=== PATIENT | female | born 1950 | race Caucasian/White ===

== ENCOUNTER 2018-04-16 17:43 | Observation (INO) ==
[2018-04-16] MEDS ORDERED: IPRATROPIUM/ALBUTEROL SULFATE 3 ML NEB NEB ONE (18:16)
[2018-04-16] MEDS ORDERED: Sodium Chloride 0.9% 1,000 ML PRIMARY IV ONE (18:16)
--- NOTE | 2018-04-16 18:25 | PDOC ---
Upper Respiratory HPI - General Chief Complaint: Cough / URI Stated Complaint: "blooming cold almost a week" Date Seen by Provider: 04/16/18 Time Seen by Provider: 18:05 Source: POSITIVE: Patient Exam Limitations: POSITIVE: No limitations Nurse's Notes Reviewed & Considered: Yes - History of Present Illness Initial Comments: The patient is a 67-year-old female who is brought to the emergency department with complaints of cough. She developed upper respiratory symptoms approximately a week ago. She has had increase in productive cough over the past couple of days. She was running a low-grade fever earlier today. She does have a history of COPD and continues to smoke. She does not currently use oxygen or any type of inhalers or breathing treatments at home. She does have a history of previous CVA with left-sided deficit from approximately 2 years ago. She does still take Plavix. She has not noticed any shortness of breath however she was somewhat hypoxic on arrival and placed on O2 per nasal cannula. She does report some tightness across her chest for the past couple of days. - Patient Home Medications Home Medications: Home Medications atorvastatin 40 mg tablet 40 mg PO .hs #30 tab 12/20/17 baclofen 10 mg tablet 10 mg PO Q8-10H PRN #30 tab 12/20/17 metoprolol succinate ER 25 mg tablet,extended release 24 hr 25 mg PO .Twice a day #60 tab 12/20/17 nortriptyline 10 mg capsule 20 mg PO QHS #60 cap 12/20/17 clopidogrel 75 mg tablet 75 mg PO QDAY #90 tab 03/08/18 - Patient Allergies Allergies/Adverse Reactions: Allergies 3 Allergy/AdvReac Type Severity Reaction Status Date / Time Penicillins Allergy RASH Verified 04/16/18 20:33 aspirin AdvReac nausea Verified 04/16/18 20:33 Past Medical History - heen HEENT History: Hard of Hearing Additional HEENT History: wears glasses Cardiovascular History: Hypertension, Hyperlipidemia Respiratory History: Denies History Gastrointestinal History: Denies History Genitourinary History: Denies History Endocrine History: Denies History Musculoskeletal History: Back Pain Prosthesis or Implant: No Neurological History: CVA Additional Neurological History: "mild stroke on lt side" Blood Disorders: Denies History Psychiatric History: Depression Female Reproductive History: Hysterectomy Obstetrical History: Denies History Cancer History: Denies History In Past Year Been Physically Harmed or Verbally Threatened: No History of MDRO: No Tobacco Use: Former Smoker In the Past 12 Months, Have Used or Abuse Any Substance: None Previous Surgical History: Yes Type / Date of Surgery: lt arm fx, lt knee, hysterectomy Significant Family History: Heart disease, Cancer Past Medical History Reviewed: Reviewed - No Changes ROS - Limitations ROS Limitations: No Limitations Constitution: REPORTS: Fever (Low-grade fever earlier today according 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 DENIES: Chills Cardiovascular: REPORTS: Chest Pain (She does report some tightness across her chest) Respiratory: REPORTS: Cough Productive (Most of the time the phlegm gets caught in the back of her throat and has not expectorated), Shortness Of Breath Neurological: REPORTS: Denies Neuro Symptoms, Other (Chronic left-sided weakness ) Gastrointestinal: REPORTS: Denies GI Symptoms Musculoskeletal: REPORTS: Denies MS Symptoms Genitourinary: REPORTS: Denies Symptoms Eyes: REPORTS: Denies Symptoms ENT: REPORTS: Denies Symptoms Skin: REPORTS: Rash Upper Respiratory/Fever Exam - General Appearance General Appearance: REPORTS: Alert, Cooperative, No Acute Distress - HEENT HEENT: POSITIVE: Head Inspection Nml, Eyes Inspection Nml, Ears Inspection Nml, Nose Inspection Nml, Pharynx Inspect. Nml - Neck Neck: REPORTS: Normal Inspection. DENIES: Lymphadenopathy - Respiratory Respiratory: REPORTS: No Respiratory Distress, Other (She does have diminished breath sounds bilaterally and a wheezy rhonchus sounding cough) - Abdomen Abdomen: Soft: (All Quadrants), Denies Tenderness: (All Quadrants) - Cardiovascular Cardiovascular: REPORTS: Regular Rate and Rhythm, Heart Sounds Normal Peripheral Pulses: Dorsalis-pedis (R): 2+, Dorsalis-pedis (L): 2+ - Skin Skin: REPORTS: Intact, No Rash - Extremities Extremity: Normal ROM: (All Extremities), Normal Inspection: (All Extremities) - Neurological / Psychological Neurological: POSITIVE: Oriented X3, Motor Normal, Sensation Normal Upper Resp/Fever Progress - Results Reviewed by me Xrays/CTs/US Reviewed by me: Yes Discussed with Radiologist: Yes Radiology Findings: Chest x-ray showed some mild haziness in the right lower lobe however the radiologist read it as no acute process. Lab Results Reviewed by Me: Yes CBC and BMP: 04/16/18 18:25 04/16/18 18:25 Lab Results:: Laboratory Results 3 04/16/18 04/16/18 04/16/18 18:25 18:25 18:25 WBC 8.14 RBC 4.68 Hgb 14.8 Hct 42.6 MCV 91.0 MCH 31.6 H MCHC 34.7 RDW Std Deviation 46.8 RDW Coeff of Tati 14.3 Plt Count 312 MPV 9.7 Immature Gran % (Auto) 0.1 Neut % (Auto) 67.6 Lymph % (Auto) 20.5 [place] % (Auto) 8.0 Eos % (Auto) 3.4 Baso % (Auto) 0.4 Immature Gran # (Auto) 0.01 Neut # (Auto) 5.50 Lymph # (Auto) 1.67 [place] # (Auto) 0.65 Eos # (Auto) 0.28 Baso # (Auto) 0.03 WBC Morphology Comment Normal morphology Plt Morphology Comment Normal morphology RBC Morph Comment Normal morphology D-Dimer VBG pH VBG pCO2 VBG HCO3 VBG Base Excess Sodium Potassium Chloride Carbon Dioxide Anion Gap BUN Creatinine Estimated GFR BUN/Creatinine Ratio Glucose Calculated Osmolality Calcium Magnesium 1.9 Total Bilirubin AST ALT Alkaline Phosphatase Troponin I < 0.012 C-Reactive Protein 1.3 H NT-Pro-B Natriuret Pep 380 H Total Protein Albumin Globulin Albumin/Globulin Ratio 3 04/16/18 04/16/18 04/16/18 18:25 18:25 18:36 WBC RBC Hgb Hct MCV MCH MCHC RDW Std Deviation RDW Coeff of Tati Plt Count MPV Immature Gran % (Auto) Neut % (Auto) Lymph % (Auto) [place] % (Auto) Eos % (Auto) Baso % (Auto) Immature Gran # (Auto) Neut # (Auto) Lymph # (Auto) [place] # (Auto) Eos # (Auto) Baso # (Auto) WBC Morphology Comment Plt Morphology Comment RBC Morph Comment D-Dimer 0.40 VBG pH 7.39 VBG pCO2 44 L VBG HCO3 27 H VBG Base Excess 2 Sodium 141 Potassium 3.9 Chloride 103 Carbon Dioxide 27 Anion Gap 11 BUN 11 Creatinine 0.7 Estimated GFR > 60 BUN/Creatinine Ratio 15.71 Glucose 106 Calculated Osmolality 290.0 Calcium 9.3 Magnesium Total Bilirubin 0.7 AST 18 ALT 26 Alkaline Phosphatase 121 Troponin I C-Reactive Protein NT-Pro-B Natriuret Pep Total Protein 7.3 Albumin 4.2 Globulin 3.1 Albumin/Globulin Ratio 1.30 EKG Interpreted/Reviewed By Me:: Yes EKG Interpretation:: POSITIVE: Normal Sinus Rhythm, Normal Rate, Normal Intervals, Normal ST/T - Patient's Progress MDM / ED Course: The patient's oxygen saturation on arrival was anywhere from 86-90%. She was placed on O2 per nasal cannula. Blood cultures and lactate as well as venous blood gas were drawn with initial IV start. Patient received a DuoNeb. Her chest x-ray showed some questionable haziness in the right lower lobe although this was read as normal by the radiologist. Her blood work is essentially unremarkable with a normal d-dimer, normal troponin, mildly elevated BNP, normal white blood cell count. Clinical presentation is most consistent with COPD exacerbation. She is mildly hypoxic. Decision was made to admit the patient for initial treatment. She was given Solu-Medrol 125 mg IV. - Consult Counseled: POSITIVE: Patient, Family, RE: Lab Results, RE: Radiology Results, RE : DX, RE: Need for F/U Patient Care Time - Estimated PCT Patient Care Time (In Minutes): 35 Vital Signs - Recent Vital Signs Vital Signs: Vital Signs (Last 8 hours) Temp Pulse Pulse Pulse Resp BP BP 04/16/18 23:00 04/16/18 21:00 97.1 F 81 20 175/81 04/16/18 20:32 80 04/16/18 20:21 97.9 F 77 20 136/72 04/16/18 18:38 84 20 04/16/18 18:37 73 18 04/16/18 17:50 97.2 F 86 22 BP Pulse Ox 04/16/18 23:00 92 04/16/18 21:00 93 04/16/18 20:32 04/16/18 20:21 94 04/16/18 18:38 100 04/16/18 18:37 93 04/16/18 17:50 155/72 90 - VS Reviewed Vital Signs Reviewed: Yes Discharge Clinical Impression: COPD with exacerbation Discharge Disposition: Admit to Observation Condition: Fair
--- NOTE | 2018-04-16 18:30 | EKG ---
[address] [address] Measurements Intervals [place] Rate: 74 P: 68 [place]: 169 QRS: -70 QRSD: 117 T: -15 QT: 395 QTc: 422 Interpretive Statements SINUS RHYTHM PATTERN CONSISTENT WITH PULMONARY DISEASE LEFT ANTERIOR FASCICULAR BLOCK [QRS AXIS No previous ECG available for comparison Electronically Signed On 04-17-18 08:34:14 MDT by Ismael Torrez [email or web address]
[2018-04-16 18:39] LABS: BASOPHILS # (AUTO) 0.03 10*3/UL; BASOPHILS % (AUTO) 0.4 % (0-1); EOSINOPHILS # (AUTO) 0.28 10*3/UL; EOSINOPHILS % (AUTO) 3.4 % (0-8); Hematocrit [HCT] 42.6 % (37.0-47.0); Hemoglobin [HGB] 14.8 g/dL (12.0-16.0); LYMPHOCYTES # (AUTO) 1.67 10*3/uL; MEAN CORPUSCULAR HEMOGLOBIN 31.6 PG (27-31); MEAN CORPUSCULAR HGB CONC 34.7 g/dL (33-37); MEAN PLATELET VOLUME 9.7 FL (7.4-12.2); MONOCYTES # (AUTO) 0.65 10*3/UL (0.3-0.8); NEUTROPHILS % (AUTO) 67.6 % (50-80); RED BLOOD COUNT 4.68 10^6/uL (4.20-5.40)
[2018-04-16 18:40] LABS: PLATELET MORPHOLOGY COMMENT NORMAL MORPHOLOGY (NORM); RBC MORPHOLOGY COMMENT NORMAL MORPHOLOGY (NORM); WBC MORPHOLOGY COMMENT NORMAL MORPHOLOGY (NORM)
[2018-04-16 18:47] LABS: BLOOD UREA NITROGEN 11 mg/dL (7-22); BUN/CREATININE RATIO 15.71 (6-20); SERUM ALBUMIN 4.2 g/dL (3.5-4.8)
[2018-04-16 19:01] LABS: VENOUS PH 7.39 (7.32-7.42)
[2018-04-16] MEDS ORDERED: methylPREDNISolone 125 MG/2 ML VIAL IVP ONE (19:56)
--- NOTE | 2018-04-16 20:15 | DI ---
XR CXR 1VW,04/16/2018 6:17 PM: Clinical History: Cough and hypoxia. Previous Exam: None at this facility. Findings: A single frontal radiograph of the chest is obtained, and demonstrates clear lungs. The cardiomediast inum and bony thorax are unremarkable. Mild degenerative changes are noted of the acromioclavicular joints. Impression: No acute disease.
[2018-04-16] MEDS ORDERED: LIDOCAINE W/ SODIUM BICARB 0.5 ML SYR SUBD PRN (20:26)
[2018-04-16] MEDS ORDERED: BACLOFEN 20 MG TABLET PO PRN (20:26)
[2018-04-16] MEDS ORDERED: ALBUTEROL SULFATE 2.5 MG/3 ML NEB PRN (20:26)
[2018-04-16] MEDS ORDERED: NORTRIPTYLINE HCL 10 MG CAPSULE PO SCH (21:00)
[2018-04-16] MEDS ORDERED: ATORVASTATIN 40 MG TABLET PO SCH (21:00)
[2018-04-16] MEDS: Metoprolol TARTRATE Tab 25 MG TAB PO SCH (21:24)
[2018-04-16] MEDS: CLOPIDOGREL 75 MG TABLET PO SCH (21:24)
--- NOTE | 2018-04-16 21:43 | PDOC ---
HPI - History of Present Illness History of Present Illness: This very nice 67-year-old female with past medical history consistent with COPD has been a smoker whole her life she said she quit 1 month ago. Had increase the productive cough over the last couple days and some shortness of breath and decided to be seen in the ER she does not use oxygen or any medication for her COPD she has also past medical history from previous CVA with left-sided weakness from 2 years ago and is on Plavix she does not know where Drs. was a little hypoxic in the ER was placed on 2 L of oxygen and given steroids Past Medical History Medical History: COPD, history of CVA, hypertension, hypercholesterolemia Tobacco Use: Former Smoker In the Past 12 Months, Have Used or Abuse Any of the Following Substance: None Medication / Allergies Home Medications: Home Medications 3 Medication Instructions Recorded Confirmed Type atorvastatin 40 mg tablet 40 mg PO .hs #30 tab 12/20/17 04/16/18 Rx baclofen 10 mg tablet 10 mg PO Q8-10H PRN #30 tab 12/20/17 04/16/18 Rx metoprolol succinate ER 25 mg 25 mg PO .Twice a day #60 tab 12/20/17 04/16/18 Rx tablet,extended release 24 hr nortriptyline 10 mg capsule 20 mg PO QHS #60 cap 12/20/17 04/16/18 Rx clopidogrel 75 mg tablet 75 mg PO QDAY #90 tab 03/08/18 04/16/18 Rx Allergies/Adverse Reactions: Allergies 3 Allergy/AdvReac Type Severity Reaction Status Date / Time Penicillins Allergy RASH Verified 04/16/18 20:33 aspirin AdvReac nausea Verified 04/16/18 20:33 Review of Systems - Review of Systems All Systems: Reviewed & No Additional Complaints Except as Stated - Respiratory Respiratory: REPORTS: Cough, Wheezing - Cardiovascular Cardiovascular: DENIES: Negative System Review, Chest Pain, Edema, Syncope, Palpitations, Orthopnea, Paroxysmal Nocturnal Dyspnea, Other, See HPI - Gastrointestinal Gastrointestinal / Abdominal: DENIES: Negative System Review, Nausea, Vomiting, Diarrhea, Constipation, Abdominal Pain, Bloody Stool, Poor Appetite, Heartburn, Regurgitation, Bloating, Lactose Intolerance, Melena, Bright Red Blood per Rectum, Other, See HPI - Neurological Neurologic: REPORTS: Weakness (The weakness is chronic on the left side). DENIES: Headache, Tremors, LOC, Dizziness, Confusion Exam - Vitals Vital Signs: Vital Signs Temperature 97.1 F Temperature Source Temporal Artery Scan Pulse Rate [Apical] 80 Pulse Rate [Pulse Oximeter] 81 Pulse Rate 77 Respiratory Rate 20 Blood Pressure [Left Arm] 175/81 Blood Pressure [Right Arm] 155/72 Blood Pressure 136/72 Pulse Ox 92 Oxygen Flow Rate 2 Oxygen Delivery Method Nasal Cannula Height 5 ft 10 in Weight 217 lb 2 oz - General General Appearance: No Acute Distress, Cooperative - Head Head Exam: Normal Inspection, Normocephalic, Atraumatic - Eye Eye Exam: POSITIVE: Normal Appearance, PERRL, EOMI, No Scleral Icterus - Neck Neck Exam: Normal Inspection, Full ROM, No Tenderness, No Lymphadenopathy, No Thyromegaly, JVP is not Raised - Respiratory Respiratory Exam: POSITIVE: Decreased Breath Sounds, Rales, Wheezes - Cardiovascular Cardiovascular Exam: POSITIVE: RRR, No Murmur, No Clicks, No Gallops, No Rubs, PMI Non-Displaced - GI/Abdominal GI/Abdominal Exam: POSITIVE: Normal Bowel Sounds, Non Tender, Non Distended, Soft, No Masses, No Hepatomegaly, No Splenomegaly, No Organomegaly - Extremities Extremities Exam: POSITIVE: Normal Inspection, Full ROM, Normal Capillary Refill , No Clubbing Present, No Edema Present, No Cyanosis Present, Negative Shaheed's sign, Dosalis Pedis Pulses - Stong & Regular Results - Labs CBC and BMP: 04/16/18 18:25 04/16/18 18:25 Assessment and Plan - Patient Problems (1) COPD with exacerbation Current Visit: Yes Status: Acute Comment: We will start Levaquin patient is allergic to penicillin, and dual nebs , and steroids 60 IV every 6 we'll see how she does tomorrow labs are unremarkable we will do also on oxygen challenge and making sure that she has not any oxygen to be discharged patient agrees and understands I discussed this with nursing she wants to be DO NOT RESUSCITATE Code(s): J44.1 - Chronic obstructive pulmonary disease with (acute) exacerbation (2) Hypoxia Current Visit: No Status: Acute Code(s): R09.02 - Hypoxemia (3) Hypertension Current Visit: No Status: Chronic Code(s): I10 - Essential (primary) hypertension Qualifiers:
[2018-04-17] MEDS: methylPREDNISolone 125 MG/2 ML VIAL IVP SCH ×2 (01:34→09:25)
[2018-04-17 04:56] LABS: BASOPHILS # (AUTO) 0.01 10*3/UL; BASOPHILS % (AUTO) 0.1 % (0-1); EOSINOPHILS # (AUTO) 0.01 10*3/UL; EOSINOPHILS % (AUTO) 0.1 % (0-8); Hematocrit [HCT] 40.2 % (37.0-47.0); Hemoglobin [HGB] 13.9 g/dL (12.0-16.0); MEAN CORPUSCULAR HEMOGLOBIN 31.2 PG (27-31); MEAN CORPUSCULAR HGB CONC 34.6 g/dL (33-37); MEAN CORPUSCULAR VOLUME 90.1 FL (81-99); MEAN PLATELET VOLUME 9.9 FL (7.4-12.2); MONOCYTES # (AUTO) 0.06 10*3/UL (0.3-0.8); MONOCYTES % (AUTO) 0.7 % (5-15); NEUTROPHILS # (AUTO) 7.38 10*3/UL; NEUTROPHILS % (AUTO) 82.7 % (50-80); RED BLOOD COUNT 4.46 10^6/uL (4.20-5.40)
[2018-04-17 05:17] LABS: VENOUS PH 7.43 (7.32-7.42)
[2018-04-17 05:25] LABS: PLATELET MORPHOLOGY COMMENT NORMAL MORPHOLOGY (NORM); RBC MORPHOLOGY COMMENT NORMAL MORPHOLOGY (NORM); WBC MORPHOLOGY COMMENT NORMAL MORPHOLOGY (NORM)
[2018-04-17 05:26] LABS: BLOOD UREA NITROGEN 15 mg/dL (7-22); BUN/CREATININE RATIO 21.42 (6-20)
[2018-04-17 06:39] VITALS: BP 157/78; TEMP 97.1
[2018-04-17 07:19] VITALS: RESP 18
--- NOTE | 2018-04-17 09:11 | DI ---
CT CTA Chest Non-Coronary O,04/17/2018 7:27 AM: Clinical History: Hypoxia. Previous Exam: None at this facility. Findings: Multiple helically acquired CT images are obtained through the chest following intravenous administra tion of contrast, and demonstrate normal pulmonary arteries without filling defect or truncation to s uggest pulmonary embolism. The aorta is normal. There is no infiltrate nor effusion. There is some motion artifact. The thyroid is within normal limits. There is no mediastinal lymphadenopathy. The upper abdomen is un remarkable. Diffuse degenerative changes of the spine are seen. Impression: 1. No evidence of pulmonary embolism. 2. No evidence of infiltrate nor effusion.
[2018-04-17] MEDS ORDERED: FLUTICASONE/SALMETEROL 250/50 UD INHALER INH SCH (09:15)
[2018-04-17] MEDS ORDERED: TIOTROPIUM BROMIDE 18 MCG CAPSULE INH SCH (09:15)
--- NOTE | 2018-04-17 09:19 | DCSUMMARY ---
Hospitalization Summary Hospital Course: Final Discharge Diagnosis: Current Visit Problems Problem Status Onset Code COPD with exacerbation Acute J44.1 Diagnostic Data, Laboratory Data, and Procedures of Signifigance: Laboratory Results 04/16/18 04/16/18 04/16/18 Range/Units 18:25 18:25 18:25 WBC 8.14 (4.8-10.8) 10^3/uL RBC 4.68 (4.20-5.40) 10^6/uL Hgb 14.8 (12.0-16.0) g/dL Hct 42.6 (37.0-47.0) % MCV 91.0 (81-99) FL MCH 31.6 H (27-31) PG MCHC 34.7 (33-37) g/dL RDW Std Deviation 46.8 (39-50) fL RDW Coeff of Tati 14.3 (11.5-14.5) % Plt Count 312 (140-350) 10*3/uL MPV 9.7 (7.4-12.2) FL Immature Gran % (Auto) 0.1 (0-5) % Neut % (Auto) 67.6 (50-80) % Lymph % (Auto) 20.5 (10-50) % [place] % (Auto) 8.0 (5-15) % Eos % (Auto) 3.4 (0-8) % Baso % (Auto) 0.4 (0-1) % Immature Gran # (Auto) 0.01 10*3/UL Neut # (Auto) 5.50 10*3/UL Lymph # (Auto) 1.67 10*3/uL [place] # (Auto) 0.65 (0.3-0.8) 10*3/UL Eos # (Auto) 0.28 10*3/UL Baso # (Auto) 0.03 10*3/UL WBC Morphology Comment Normal morphology (NORM) Plt Morphology Comment Normal morphology (NORM) RBC Morph Comment Normal morphology (NORM) D-Dimer (0.00-0.59) mg/L VBG pH (7.32-7.42) VBG pCO2 (45-55) mmHg VBG HCO3 (22-26) mmol/L VBG Base Excess (-2-2) MMOL/L Sodium (135-145) meq/L Potassium (3.8-5.2) meq/L Chloride (98-112) meq/L Carbon Dioxide (23-33) meq/L Anion Gap (5-20) BUN (7-22) mg/dL Creatinine (0.50-1.20) mg/dL Estimated GFR (>60 ml/min/1.73m(2)) BUN/Creatinine Ratio (6-20) Glucose (78-110) mg/dL Calculated Osmolality (267-292) mOsm/kg Calcium (8.7-10.7) mg/dL Magnesium 1.9 (1.6-2.4) mg/dL Total Bilirubin (0.3-1.2) mg/dL AST (8-39) IU/L ALT (9-52) IU/L Alkaline Phosphatase (38-126) IU/L Troponin I < 0.012 (< 0.040) ng/mL C-Reactive Protein 1.3 H (0.0-0.9) mg/dL NT-Pro-B Natriuret Pep 380 H (0-125) PG/ML Total Protein (6.1-8.0) g/dL Albumin (3.5-4.8) g/dL Globulin (2.50-4.10) g/dL Albumin/Globulin Ratio (1.3-2.0) mg/g 04/16/18 04/16/18 04/16/18 Range/Units 18:25 18:25 18:36 WBC (4.8-10.8) 10^3/uL RBC (4.20-5.40) 10^6/uL Hgb (12.0-16.0) g/dL Hct (37.0-47.0) % MCV (81-99) FL MCH (27-31) PG MCHC (33-37) g/dL RDW Std Deviation (39-50) fL RDW Coeff of Tati (11.5-14.5) % Plt Count (140-350) 10*3/uL MPV (7.4-12.2) FL Immature Gran % (Auto) (0-5) % Neut % (Auto) (50-80) % Lymph % (Auto) (10-50) % [place] % (Auto) (5-15) % Eos % (Auto) (0-8) % Baso % (Auto) (0-1) % Immature Gran # (Auto) 10*3/UL Neut # (Auto) 10*3/UL Lymph # (Auto) 10*3/uL [place] # (Auto) (0.3-0.8) 10*3/UL Eos # (Auto) 10*3/UL Baso # (Auto) 10*3/UL WBC Morphology Comment (NORM) Plt Morphology Comment (NORM) RBC Morph Comment (NORM) D-Dimer 0.40 (0.00-0.59) mg/L VBG pH 7.39 (7.32-7.42) VBG pCO2 44 L (45-55) mmHg VBG HCO3 27 H (22-26) mmol/L VBG Base Excess 2 (-2-2) MMOL/L Sodium 141 (135-145) meq/L Potassium 3.9 (3.8-5.2) meq/L Chloride 103 (98-112) meq/L Carbon Dioxide 27 (23-33) meq/L Anion Gap 11 (5-20) BUN 11 (7-22) mg/dL Creatinine 0.7 (0.50-1.20) mg/dL Estimated GFR > 60 (>60 ml/min/1.73m(2)) BUN/Creatinine Ratio 15.71 (6-20) Glucose 106 (78-110) mg/dL Calculated Osmolality 290.0 (267-292) mOsm/kg Calcium 9.3 (8.7-10.7) mg/dL Magnesium (1.6-2.4) mg/dL Total Bilirubin 0.7 (0.3-1.2) mg/dL AST 18 (8-39) IU/L ALT 26 (9-52) IU/L Alkaline Phosphatase 121 (38-126) IU/L Troponin I (< 0.040) ng/mL C-Reactive Protein (0.0-0.9) mg/dL NT-Pro-B Natriuret Pep (0-125) PG/ML Total Protein 7.3 (6.1-8.0) g/dL Albumin 4.2 (3.5-4.8) g/dL Globulin 3.1 (2.50-4.10) g/dL Albumin/Globulin Ratio 1.30 (1.3-2.0) mg/g 07/24/18 07/24/18 07/24/18 Range/Units 04:40 04:45 04:45 WBC 8.92 (4.8-10.8) 10^3/uL RBC 4.46 (4.20-5.40) 10^6/uL Hgb 13.9 (12.0-16.0) g/dL Hct 40.2 (37.0-47.0) % MCV 90.1 (81-99) FL MCH 31.2 H (27-31) PG MCHC 34.6 (33-37) g/dL RDW Std Deviation 45.1 (39-50) fL RDW Coeff of Tati 14.1 (11.5-14.5) % Plt Count 328 (140-350) 10*3/uL MPV 9.9 (7.4-12.2) FL Immature Gran % (Auto) 0.7 (0-5) % Neut % (Auto) 82.7 H (50-80) % Lymph % (Auto) 15.7 (10-50) % [place] % (Auto) 0.7 L (5-15) % Eos % (Auto) 0.1 (0-8) % Baso % (Auto) 0.1 (0-1) % Immature Gran # (Auto) 0.06 10*3/UL Neut # (Auto) 7.38 10*3/UL Lymph # (Auto) 1.40 10*3/uL [place] # (Auto) 0.06 L (0.3-0.8) 10*3/UL Eos # (Auto) 0.01 10*3/UL Baso # (Auto) 0.01 10*3/UL WBC Morphology Comment Normal morphology (NORM) Plt Morphology Comment Normal morphology (NORM) RBC Morph Comment Normal morphology (NORM) D-Dimer (0.00-0.59) mg/L VBG pH 7.43 H (7.32-7.42) VBG pCO2 37 L (45-55) mmHg VBG HCO3 25 (22-26) mmol/L VBG Base Excess 0 (-2-2) MMOL/L Sodium 139 (135-145) meq/L Potassium 4.2 (3.8-5.2) meq/L Chloride 102 (98-112) meq/L Carbon Dioxide 22 L (23-33) meq/L Anion Gap 15 (5-20) BUN 15 (7-22) mg/dL Creatinine 0.7 (0.50-1.20) mg/dL Estimated GFR > 60 (>60 ml/min/1.73m(2)) BUN/Creatinine Ratio 21.42 H (6-20) Glucose 146 H (78-110) mg/dL Calculated Osmolality 291.0 (267-292) mOsm/kg Calcium 9.6 (8.7-10.7) mg/dL Magnesium (1.6-2.4) mg/dL Total Bilirubin (0.3-1.2) mg/dL AST (8-39) IU/L ALT (9-52) IU/L Alkaline Phosphatase (38-126) IU/L Troponin I (< 0.040) ng/mL C-Reactive Protein (0.0-0.9) mg/dL NT-Pro-B Natriuret Pep (0-125) PG/ML Total Protein (6.1-8.0) g/dL Albumin (3.5-4.8) g/dL Globulin (2.50-4.10) g/dL Albumin/Globulin Ratio (1.3-2.0) mg/g History and Physical pertinent to Admission: Course of Hospitalization: This very nice 67-year-old female smoker who comes in with some shortness of breath and hypoxia CT scan revealed no pneumonia no masses no PE as per Dr. Guido chest x-ray was unremarkable labs were unremarkable VBG improved since yesterday patient's lungs are clear she was treated with one dose of Levaquin and steroids IV patient's lungs were clear this morning Levaquin was stopped since there is no pneumonia she will be discharged home on the Tri-Tristan of Zithromax 500 by mouth daily tab for 3 days also she is on no inhalers for her COPD and I will prescribe with Spiriva and Advair these medications were faxed to [facility] also she will be on a prednisone 30 mg for 5 days. Follow-up appointment with Dr. Ellis is being made towards the end of the week patient understands and agrees discussed with nursing I will also having respiratory therapy do a desat study to see if she qualifies for home oxygen if she does we will set her up as well. On the date of discharge, the patient was examined: Gen.: No acute distress, alert, nontoxic Heart: Regular rate and rhythm, no murmurs, clicks, gallops, or rubs Lungs: Clear to auscultation bilaterally, breathing is nonlabored Abdomen/GI: Normal tones on auscultation, soft, nontender, nondistended Musculoskeletal/extremities: No clubbing, cyanosis, or edema Vitals reviewed and are listed below Vital Signs (24 hrs) Temp Pulse Pulse Pulse Resp BP BP 04/17/18 07:00 84 18 04/17/18 06:39 04/17/18 06:38 97.1 F 76 17 157/78 04/17/18 05:11 04/17/18 04:35 97.5 F 81 22 170/90 04/17/18 03:00 75 04/17/18 01:00 97.2 F 75 20 161/67 04/16/18 23:00 04/16/18 21:00 97.1 F 81 20 175/81 04/16/18 20:32 80 04/16/18 20:21 97.9 F 77 20 136/72 04/16/18 18:38 84 20 04/16/18 18:37 73 18 04/16/18 17:50 97.2 F 86 22 BP Pulse Ox 04/17/18 07:00 04/17/18 06:39 92 04/17/18 06:38 92 04/17/18 05:11 94 04/17/18 04:35 94 04/17/18 03:00 95 04/17/18 01:00 93 04/16/18 23:00 92 04/16/18 21:00 93 04/16/18 20:32 04/16/18 20:21 94 04/16/18 18:38 100 04/16/18 18:37 93 04/16/18 17:50 155/72 90 Assessment and Plan: 1. As per discharge assessments above 2. Disposition: Home 3. Condition on discharge, stable and improved. 4. Diet: regular diet 5. Activities: resume normal activities 6. Follow-Up: 1. PCP Dr. Ellis 2. 7. Medications at the Time of Discharge: Home Medications 3 Medication Instructions Recorded Confirmed Type atorvastatin 40 mg tablet 40 mg PO .hs #30 tab 12/20/17 04/16/18 Rx baclofen 10 mg tablet 10 mg PO Q8-10H PRN #30 tab 12/20/17 04/16/18 Rx metoprolol succinate ER 25 mg 25 mg PO .Twice a day #60 tab 12/20/17 04/16/18 Rx tablet,extended release 24 hr nortriptyline 10 mg capsule 20 mg PO QHS #60 cap 12/20/17 04/16/18 Rx clopidogrel 75 mg tablet 75 mg PO QDAY #90 tab 03/08/18 04/16/18 Rx Azithromycin [Zithromax Tri-Tristan] 500 mg PO DAILY #3 tab 04/17/18 Rx Fluticasone/Salmeterol [Advair 1 ea IH BID #1 blst.w.dev 04/17/18 Rx 250-50 Diskus] Tiotropium Inhalation Cap 18 mcg IH DAILY #1 ud 04/17/18 Rx [Spiriva Inhalation Cap] predniSONE Tab [Deltasone Tab] 30 mg PO DAILY 5 Days #20 tab 04/17/18 Rx 8. Time, care, counseling and coordination of care for this discharge is greater than 30 minutes. Exam - Vitals Vital Signs: Vital Signs Temperature 97.1 F Temperature Source Temporal Artery Scan Pulse Rate [Apical] 80 Pulse Rate [Pulse Oximeter] 76 Pulse Rate 84 Respiratory Rate 18 Blood Pressure [Left Arm] 157/78 Blood Pressure [Right Arm] 155/72 Blood Pressure 136/72 Pulse Ox 92 Oxygen Flow Rate 2 Oxygen Delivery Method Nasal Cannula Height 5 ft 10 in Weight 206 lb 6.4 oz Patient Problems - Patient Problem List (1) COPD with exacerbation Current Visit: Yes Status: Acute Code(s): J44.1 - Chronic obstructive pulmonary disease with (acute) exacerbation Category: Medical (2) Hypoxia Current Visit: No Status: Acute Code(s): R09.02 - Hypoxemia Category: Medical (3) Hypertension Current Visit: No Status: Chronic Code(s): I10 - Essential (primary) hypertension Qualifiers: Category: Medical
[2018-04-17 09:28] VITALS: O2SAT 94
[2018-04-17] MEDS ORDERED: predniSONE Tab 20 MG TAB PO SCH (09:30)
[2018-04-17] MEDS ORDERED: predniSONE Tab 10 MG, predniSONE Tab 20 MG PO SCH ×2 (09:45)
[2018-04-17] MEDS: Metoprolol TARTRATE Tab 25 MG TAB PO SCH (09:47)
[2018-04-17] MEDS: CLOPIDOGREL 75 MG TABLET PO SCH (09:47)
[2018-04-18] MEDS ORDERED: predniSONE Tab 20 MG TAB PO SCH (09:00)
== END 2018-04-17 11:07 | disposition home or self-care (01) ==
LOC: MED/SURG 17:43 → ER 17:43 → UNDODISOB 04-17 11:07
PROVIDERS: ADMIT Internal Medicine; ATTEND Internal Medicine